=== PATIENT | male | born 1955 | race Caucasian/White ===

== ENCOUNTER 2023-08-08 02:25 | Inpatient (IN) | payer MEDICARE ==
[2023-08-08] VITALS (12 sets, daily range): BP systolic 107–138; BP diastolic 60–86; PULSE 62–98; RESP 16–19; TEMP 97.9–98.4; O2SAT 95–100
[~2023-08-08] VITALS: Ht 157.5 cm; Wt 54.5 kg
[2023-08-08] MEDS ORDERED: MORPHINE SULFATE INJ 2 MG/ml SYRG IV PRN (03:15)
[2023-08-08] MEDS ORDERED: NITROGLYCERIN 0.4 MG SL TAB SL PRN (03:15)
[2023-08-08] MEDS ORDERED: hydrALAZINE HCL 20 MG/ML VL IV PRN (03:30)
[2023-08-08] MEDS ORDERED: HEPARIN SODIUM (PORCINE) 5000 UNITS/ML 1ML VIAL SC SCH (06:00)
[2023-08-08 06:59] LABS: Eosinophils # (auto) 0.2 10 ^3/uL (0-0.8); Hemoglobin 8.4 g/dL (13.5-17.5); Lymphocytes # (auto) 1.6 10 ^3/uL (0.4-5.4); Mean Corpuscular Hemoglobin 29.5 pg (28.0-32.0); Monocytes # (auto) 0.6 10 ^3/uL (0-1.3); Neutrophils # (auto) 7.8 10 ^3/uL (1.6-8.6)
[2023-08-08 07:00] LABS: Basophils # (auto) 0.2 10 ^3/uL (0-0.2); Basophils % (auto) 1.5 % (0.0-2.0); Hematocrit 24.9 % (41.0-53.0); Lymphocytes % (auto) 15.2 % (10.0-50.0); Mean Corpuscular Hgb Conc. 33.7 g/dL (32.0-36.0); Mean Corpuscular Volume 87.4 fL (80.0-100.0); Monocytes % (auto) 6.2 % (0.0-12.0); Neutrophils % (auto) 75.1 % (37.0-80.0); Red Blood Cells 2.85 10^6/uL (4.5-5.90); Red Cell Distribution Width 16.1 % (11.8-14.3); White Blood Cell 10.4 10^3/uL (4.4-10.8)
[2023-08-08 07:14] LABS: Alanine Aminotransferase 22 U/L (7-40); Albumin 4.4 g/dL (3.2-4.8); Alkaline Phosphatase 45 U/L (46-116); Anion Gap 12 (5-15); Aspartate Aminotransferase 70 U/L (13-40); BUN/Creatinine Ratio 4.7 (10.0-20.0); Bilirubin, Total 0.2 mg/dL (0.2-1.0); Blood Urea Nitrogen 34 mg/dL (9-23); Carbon Dioxide 28 mmol/L (20-30); Chloride 98 mmol/L (98-107); Glucose 86 mg/dL (74-106); Potassium 3.9 mmol/L (3.5-5.1); Sodium 138 mmol/L (136-145); Total Protein 6.8 g/dL (5.7-8.2)
[2023-08-08] MEDS ORDERED: HEPARIN DRIP/D5W 100UNITS/ML 250 ML IV SCH (12:15)
[2023-08-08] MEDS ORDERED: ATORVASTATIN 20 MG TAB PO ONE (12:15)
[2023-08-08] MEDS ORDERED: ASPirin 325 MG TAB PO ONE (12:15)
[2023-08-08 14:07] LABS: Basophils # (auto) 0 10 ^3/uL (0-0.2); Basophils % (auto) 0.3 % (0.0-2.0); Eosinophils # (auto) 0.4 10 ^3/uL (0-0.8); Eosinophils % (auto) 3.5 % (0.0-7.0); Hematocrit 27.1 % (41.0-53.0); Hemoglobin 8.8 g/dL (13.5-17.5); Lymphocytes # (auto) 1.9 10 ^3/uL (0.4-5.4); Lymphocytes % (auto) 17.7 % (10.0-50.0); Mean Corpuscular Hemoglobin 28.5 pg (28.0-32.0); Mean Corpuscular Hgb Conc. 32.4 g/dL (32.0-36.0); Mean Corpuscular Volume 88.1 fL (80.0-100.0); Monocytes # (auto) 0.8 10 ^3/uL (0-1.3); Monocytes % (auto) 7.8 % (0.0-12.0); Neutrophils # (auto) 7.5 10 ^3/uL (1.6-8.6); Neutrophils % (auto) 70.7 % (37.0-80.0); Nucleated Red Blood Cells % 0.1 %; Red Blood Cells 3.07 10^6/uL (4.5-5.90); Red Cell Distribution Width 15.8 % (11.8-14.3); White Blood Cell 10.6 10^3/uL (4.4-10.8)
[2023-08-08 14:28] LABS: INR 1.03 (0.9-1.15); Partial Thromboplastin Time 28.5 SEC (24.5-34.5)
[2023-08-08] MEDS ORDERED: LIDOCAINE 2%HCL (LOCAL ANESTH.) INJ 20ML MDV ONE (15:01)
[2023-08-08] MEDS ORDERED: IODIXANOL 320MG/ML 100ML BTL IV ONE (15:01)
[2023-08-08] MEDS ORDERED: ANGIOMAX 250 MG VIAL IV ONE (15:30)
[2023-08-08] MEDS ORDERED: fentaNYL CITRATE 100 MCG/2 ML VL ONE (15:30)
[2023-08-08] MEDS ORDERED: SODIUM CHL 0.9% 50 ML ONE (15:31)
[2023-08-08] MEDS ORDERED: MIDAZOLAM HCL 2MG/2ML 2ml VIAL (1mg/ml) ONE (15:31)
[2023-08-08] MEDS ORDERED: TICAGRELOR 90 MG TAB ONE (16:23)
[2023-08-08] MEDS ORDERED: ASPirin 81 mg TAB ONE (16:23)
[2023-08-08] MEDS: TICAGRELOR 90 MG TAB PO SCH (22:12)
[2023-08-08] MEDS: CARVEDILOL 3.125 MG TAB PO SCH (22:13)
[2023-08-08] MEDS: ATORVASTATIN 20 MG TAB PO SCH (22:14)
[2023-08-08] MEDS: SACUBITRIL-VALSARTAN 24mg/26mg TAB PO SCH (22:14)
[2023-08-09] VITALS (8 sets, daily range): BP systolic 117–199; BP diastolic 76–92; PULSE 55–103; RESP 16–20; TEMP 97.5–98.2; O2SAT 94–100
[2023-08-09 07:01] LABS: Basophils # (auto) 0.1 10 ^3/uL (0-0.2); Eosinophils # (auto) 0.5 10 ^3/uL (0-0.8); Eosinophils % (auto) 6.1 % (0.0-7.0); Hematocrit 27.5 % (41.0-53.0); Hemoglobin 8.9 g/dL (13.5-17.5); Lymphocytes # (auto) 1.1 10 ^3/uL (0.4-5.4); Lymphocytes % (auto) 12.7 % (10.0-50.0); Mean Corpuscular Hemoglobin 28.6 pg (28.0-32.0); Mean Corpuscular Hgb Conc. 32.2 g/dL (32.0-36.0); Mean Corpuscular Volume 88.8 fL (80.0-100.0); Monocytes # (auto) 0.7 10 ^3/uL (0-1.3); Monocytes % (auto) 7.7 % (0.0-12.0); Neutrophils # (auto) 6.3 10 ^3/uL (1.6-8.6); Neutrophils % (auto) 72.5 % (37.0-80.0); Red Cell Distribution Width 16.1 % (11.8-14.3); White Blood Cell 8.7 10^3/uL (4.4-10.8)
[2023-08-09 07:10] LABS: Alanine Aminotransferase 18 U/L (7-40); Albumin 3.9 g/dL (3.2-4.8); Alkaline Phosphatase 57 U/L (46-116); Anion Gap 11 (5-15); Aspartate Aminotransferase 45 U/L (13-40); Carbon Dioxide 26 mmol/L (20-30); Chloride 97 mmol/L (98-107); Glucose 85 mg/dL (74-106); Potassium 4.2 mmol/L (3.5-5.1); Sodium 134 mmol/L (136-145)
[2023-08-09 07:11] LABS: Bilirubin, Total 0.2 mg/dL (0.2-1.0); Total Protein 6.2 g/dL (5.7-8.2)
[2023-08-09 07:18] LABS: Blood Urea Nitrogen 55 mg/dL (9-23)
[2023-08-09] MEDS: CARVEDILOL 3.125 MG TAB PO SCH ×2 (09:09→21:31)
[2023-08-09] MEDS: SACUBITRIL-VALSARTAN 24mg/26mg TAB PO SCH ×2 (09:09→21:28)
[2023-08-09] MEDS: PANTOPRAZOLE 40 MG/10 ML VIAL INJ IV SCH (09:10)
[2023-08-09] MEDS: TICAGRELOR 90 MG TAB PO SCH ×2 (09:10→21:28)
[2023-08-09] MEDS: ASPirin-EC 81 mg tab PO SCH (09:10)
[2023-08-09] MEDS ORDERED: SODIUM CHL 0.9% 1000 ML BAG XX ONE (11:45)
[2023-08-09 12:19] LABS: % Iron Saturation 24.7 % (20-55)
[2023-08-09 12:56] LABS: Hepatitis B Surface Antigen Negative (Negative)
[2023-08-09 13:16] LABS: Hepatitis A Ab IgM Negative
[2023-08-09 13:17] LABS: Hepatitis B Core IgM Negative; Hepatitis C Antibody Negative (Negative)
[2023-08-09] MEDS ORDERED: EPOETIN ALFA-EPBX 10,000 UNIT/1ML VIAL SC ONE (21:00)
[2023-08-09] MEDS: ATORVASTATIN 20 MG TAB PO SCH (21:28)
[2023-08-10 05:00] VITALS: BP 91/60; PULSE 68; RESP 18; TEMP 97.4; O2SAT 98
[2023-08-10 06:53] LABS: Basophils # (auto) 0.1 10 ^3/uL (0-0.2); Basophils % (auto) 1.4 % (0.0-2.0); Eosinophils % (auto) 12.7 % (0.0-7.0); Hematocrit 33.5 % (41.0-53.0); Hemoglobin 11.2 g/dL (13.5-17.5); Lymphocytes % (auto) 12.6 % (10.0-50.0); Mean Corpuscular Hemoglobin 29.2 pg (28.0-32.0); Mean Corpuscular Hgb Conc. 33.4 g/dL (32.0-36.0); Mean Corpuscular Volume 87.4 fL (80.0-100.0); Monocytes # (auto) 0.6 10 ^3/uL (0-1.3); Monocytes % (auto) 7.7 % (0.0-12.0); Neutrophils # (auto) 5.1 10 ^3/uL (1.6-8.6); Neutrophils % (auto) 65.6 % (37.0-80.0); Nucleated Red Blood Cells % 0.2 %; Red Blood Cells 3.83 10^6/uL (4.5-5.90); Red Cell Distribution Width 16.1 % (11.8-14.3); White Blood Cell 7.8 10^3/uL (4.4-10.8)
[2023-08-10 07:09] LABS: Alanine Aminotransferase 22 U/L (7-40); Albumin 4.8 g/dL (3.2-4.8); Alkaline Phosphatase 70 U/L (46-116); Anion Gap 12 (5-15); Aspartate Aminotransferase 45 U/L (13-40); BUN/Creatinine Ratio 4.8 (10.0-20.0); Blood Urea Nitrogen 16 mg/dL (9-23); Calcium 8.9 mg/dL (8.7-10.4); Carbon Dioxide 30 mmol/L (20-30); Chloride 98 mmol/L (98-107); Glucose 86 mg/dL (74-106); Potassium 3.5 mmol/L (3.5-5.1); Sodium 140 mmol/L (136-145)
[2023-08-10 07:10] LABS: Bilirubin, Total 0.4 mg/dL (0.2-1.0); Total Protein 7.8 g/dL (5.7-8.2)
[2023-08-10 08:00] VITALS: BP 95/76; PULSE 95; RESP 18; TEMP 98.1; O2SAT 100
[2023-08-10 09:00] VITALS: BP 95/76; PULSE 95; RESP 18; TEMP 98.1; O2SAT 100
[2023-08-10] MEDS: PANTOPRAZOLE 40 MG/10 ML VIAL INJ IV SCH (10:33)
[2023-08-10] MEDS: SACUBITRIL-VALSARTAN 24mg/26mg TAB PO SCH (10:33)
[2023-08-10] MEDS: ASPirin-EC 81 mg tab PO SCH (10:33)
[2023-08-10] MEDS: TICAGRELOR 90 MG TAB PO SCH (10:33)
[2023-08-10] MEDS: CARVEDILOL 3.125 MG TAB PO SCH (10:36)
[2023-08-10] MEDS ORDERED: ATOR20TA50 PO (11:10)
[2023-08-10] MEDS ORDERED: NITR0.4S29 SL (11:10)
[2023-08-10] MEDS ORDERED: SACU1TAB PO (11:10)
[2023-08-10] MEDS ORDERED: TICA90TA PO (11:10)
[2023-08-10] MEDS ORDERED: CAR3125T PO (11:10)
[2023-08-10] MEDS ORDERED: ASPI-543 PO (11:10)
[2023-08-10 12:48] VITALS: BP 131/78; PULSE 95; RESP 18; TEMP 98.1; O2SAT 100
[2023-08-10 13:00] VITALS: BP 124/74; PULSE 83; RESP 20; TEMP 97.9; O2SAT 100
[2023-08-10] MEDS ORDERED: EPOETIN ALFA-EPBX 10,000 UNIT/1ML VIAL SC ONE (21:00)
== END 2023-08-10 18:20 | disposition home health service (06) | DRG 321 ==
LOC: TELE-WESTW 02:27
PROVIDERS: ADMIT Internal Medicine; ATTEND Internal Medicine
PROC: 027034Z Dilation of Coronary Artery, One Artery with Drug-eluting Intraluminal Device, Percutaneous Approach (ICD-10-PCS; principal; 2023-08-08)
PROC: B211YZZ Fluoroscopy of Multiple Coronary Arteries using Other Contrast (ICD-10-PCS; 2023-08-08)
PROC: B215YZZ Fluoroscopy of Left Heart using Other Contrast (ICD-10-PCS; 2023-08-08)
PROC: 4A023N7 Measurement of Cardiac Sampling and Pressure, Left Heart, Percutaneous Approach (ICD-10-PCS; 2023-08-08)
PROC: 5A1D70Z Performance of Urinary Filtration, Intermittent, Less than 6 Hours Per Day (ICD-10-PCS; 2023-08-09)
PROC: 5A1D70Z Performance of Urinary Filtration, Intermittent, Less than 6 Hours Per Day (ICD-10-PCS; 2023-08-10)
DX: I21.4 Non-ST elevation (NSTEMI) myocardial infarction (principal); N18.6 End stage renal disease; I12.0 Hypertensive chronic kidney disease with stage 5 chronic kidney disease or end stage renal disease; I25.10 Atherosclerotic heart disease of native coronary artery without angina pectoris; E78.5 Hyperlipidemia, unspecified; I25.5 Ischemic cardiomyopathy; D63.1 Anemia in chronic kidney disease; I36.1 Nonrheumatic tricuspid (valve) insufficiency; E87.70 Fluid overload, unspecified; Z99.2 Dependence on renal dialysis; Z79.899 Other long term (current) drug therapy; Z80.0 Family history of malignant neoplasm of digestive organs; Z83.3 Family history of diabetes mellitus; Z82.0 Family history of epilepsy and other diseases of the nervous system; Z86.73 Personal history of transient ischemic attack (TIA), and cerebral infarction without residual deficits; I25.2 Old myocardial infarction
CPT/HCPCS: 36415; 70450; 71045; 80053; 80074; 83540; 83550; 84484; 85025; 85610; 85730; 87081; 90935; 93005; 93306; 99152; C1874; C1887; C1894; C9113; G0378; J2250; Q9967

== ENCOUNTER 2023-08-31 01:07 | Inpatient (IN) | payer MEDICARE ==
[~2023-08-31] VITALS: Ht 172.7 cm; Wt 60.9 kg
[2023-08-31] VITALS (14 sets, daily range): BP systolic 136–179; BP diastolic 69–82; PULSE 60–90; RESP 16–25; TEMP 36.8; O2SAT 97–100
[~2023-08-31 01:07] MED LIST: ASPI-543 PO; ATOR20TA50 PO; CAR3125T PO; NITR0.4S29 SL; SACU1TAB PO; TICA90TA PO
[2023-08-31] MEDS ORDERED: PANTOPRAZOLE 40mg/50ML NS AE 50 ML IV ONE (01:30)
[2023-08-31 02:04] LABS: Basophils # (auto) 0.1 10 ^3/uL (0-0.2); Basophils % (auto) 0.7 % (0.0-2.0); Eosinophils # (auto) 0.5 10 ^3/uL (0-0.8); Monocytes # (auto) 0.4 10 ^3/uL (0-1.3)
[2023-08-31 02:06] LABS: Eosinophils % (auto) 6.7 % (0.0-7.0); Hematocrit 15.9 % (41.0-53.0); Lymphocytes # (auto) 1.8 10 ^3/uL (0.4-5.4); Lymphocytes % (auto) 23.7 % (10.0-50.0); Mean Corpuscular Hemoglobin 29.4 pg (28.0-32.0); Mean Corpuscular Hgb Conc. 32.6 g/dL (32.0-36.0); Mean Corpuscular Volume 90.2 fL (80.0-100.0); Monocytes % (auto) 5.8 % (0.0-12.0); Neutrophils # (auto) 4.8 10 ^3/uL (1.6-8.6); Neutrophils % (auto) 63.1 % (37.0-80.0); Red Blood Cells 1.76 10^6/uL (4.5-5.90); Red Cell Distribution Width 17.7 % (11.8-14.3); White Blood Cell 7.6 10^3/uL (4.4-10.8)
[2023-08-31 02:09] LABS: Hemoglobin 5.2 g/dL (13.5-17.5)
[2023-08-31 02:16] LABS: Alanine Aminotransferase 13 U/L (7-40); Albumin 3.7 g/dL (3.2-4.8); Alkaline Phosphatase 70 U/L (46-116); Anion Gap 16 (5-15); Aspartate Aminotransferase 17 U/L (13-40); BUN/Creatinine Ratio 16.3 (10.0-20.0); Carbon Dioxide 17 mmol/L (20-30); Chloride 104 mmol/L (98-107); Glucose 92 mg/dL (74-106); Potassium 4.9 mmol/L (3.5-5.1); Sodium 137 mmol/L (136-145)
[2023-08-31 02:17] LABS: Bilirubin, Total 0.2 mg/dL (0.2-1.0); Total Protein 5.9 g/dL (5.7-8.2)
[2023-08-31 02:43] LABS: Blood Urea Nitrogen 148 mg/dL (9-23)
[2023-08-31] MEDS ORDERED: CALCIUM CHL 100MG/ML 1,000 MG in D5W 5% 100 ML IV ONE (03:00)
[2023-08-31] MEDS ORDERED: CALCIUM GLUC 1,000mg/50ml-NS 0 ML IV ONE (03:23)
[2023-08-31] MEDS ORDERED: CALCIUM CHLOR(10%) 100MG/ML 10ML SYRINGE IV ONE (03:37)
[2023-08-31] MEDS ORDERED: ONDANSETRON HCL 4 MG/2 ML VIAL IV PRN (03:45)
[2023-08-31] MEDS ORDERED: HYDROcodone-ACET 5/325MG TAB PO PRN ×2 (03:45→04:00)
[2023-08-31] MEDS ORDERED: MORPHINE SULFATE INJ 2 MG/ml SYRG IV PRN ×2 (03:45→04:00)
[2023-08-31] MEDS ORDERED: ACETAMINOPHEN 325 MG TAB PO PRN (03:45)
[2023-08-31] MEDS ORDERED: NITROGLYCERIN 0.4 MG SL TAB SL PRN ×2 (03:45→04:00)
[2023-08-31] MEDS ORDERED: DOCUSATE SOD 100 MG CAP PO PRN (03:45)
[2023-08-31 05:57] LABS: Eosinophils # (auto) 0.9 10 ^3/uL (0-0.8); Lymphocytes # (auto) 2.1 10 ^3/uL (0.4-5.4); Monocytes # (auto) 0.5 10 ^3/uL (0-1.3); Red Blood Cells 1.61 10^6/uL (4.5-5.90); White Blood Cell 7.8 10^3/uL (4.4-10.8)
[2023-08-31 06:00] LABS: Basophils # (auto) 0.1 10 ^3/uL (0-0.2); Basophils % (auto) 1.3 % (0.0-2.0); Hematocrit 14.6 % (41.0-53.0); Lymphocytes % (auto) 26.8 % (10.0-50.0); Mean Corpuscular Hemoglobin 29.9 pg (28.0-32.0); Mean Corpuscular Volume 90.4 fL (80.0-100.0); Monocytes % (auto) 5.7 % (0.0-12.0); Neutrophils # (auto) 4.3 10 ^3/uL (1.6-8.6); Neutrophils % (auto) 55.2 % (37.0-80.0); Red Cell Distribution Width 17.2 % (11.8-14.3)
[2023-08-31 06:05] LABS: Hemoglobin 4.8 g/dL (13.5-17.5)
[2023-08-31 06:13] LABS: Alanine Aminotransferase 14 U/L (7-40); Albumin 3.6 g/dL (3.2-4.8); Alkaline Phosphatase 61 U/L (46-116); Anion Gap 16 (5-15); Calcium 7.7 mg/dL (8.5-10.1); Carbon Dioxide 17 mmol/L (20-30); Chloride 104 mmol/L (98-107); Glucose 99 mg/dL (74-106); Potassium 4.3 mmol/L (3.5-5.1); Sodium 137 mmol/L (136-145)
[2023-08-31 06:14] LABS: Aspartate Aminotransferase 20 U/L (13-40); Bilirubin, Total 0.2 mg/dL (0.2-1.0); Total Protein 5.6 g/dL (5.7-8.2)
[2023-08-31 06:21] LABS: BUN/Creatinine Ratio 15.7 (10.0-20.0)
[2023-08-31 06:26] LABS: Blood Urea Nitrogen 150 mg/dL (9-23)
[2023-08-31] MEDS ORDERED: SEVELAMER 800 MG TAB PO SCH (08:00)
[2023-08-31] MEDS: SEVELAMER 800 MG TAB PO SCH ×3 (08:49→18:33)
[2023-08-31 10:35] LABS: Hematocrit 20.1 % (41.0-53.0)
[2023-08-31] MEDS ORDERED: SODIUM CHL 0.9% 1000 ML BAG XX ONE (11:00)
[2023-08-31 11:22] LABS: Hemoglobin 6.6 g/dL (13.5-17.5)
[2023-08-31] MEDS: FAMOTIDINE (10MG/ML) 2ML VL IV SCH ×2 (11:30→21:15)
[2023-08-31] MEDS: B-COMPLEX W/ C & FOLIC ACID(NEPHROVITE TAB) PO SCH (11:30)
[2023-08-31] MEDS ORDERED: ASPI81TA28 PO (13:53)
[2023-08-31] MEDS ORDERED: CAR3125T PO (14:12)
[2023-08-31] MEDS ORDERED: SACU1TAB PO (14:13)
[2023-08-31] MEDS ORDERED: ATO40T PO (14:14)
[2023-08-31] MEDS ORDERED: SUCR5CHW PO (14:15)
[2023-08-31] MEDS ORDERED: ISOS10TA2 PO (14:15)
[2023-08-31] MEDS ORDERED: CLOP75TA28 PO (14:16)
[2023-08-31] MEDS: ONDANSETRON HCL 4 MG/2 ML VIAL IV PRN ×2 (15:42→21:14)
[2023-08-31 17:29] LABS: Hemoglobin 8.4 g/dL (13.5-17.5)
[2023-08-31 17:31] LABS: Hematocrit 24.6 % (41.0-53.0)
[2023-08-31] MEDS ORDERED: EPOETIN ALFA-EPBX 10,000 UNIT/1ML VIAL SC ONE (21:00)
[2023-09-01 06:33] LABS: Basophils # (auto) 0.1 10 ^3/uL (0-0.2); Lymphocytes # (auto) 1.7 10 ^3/uL (0.4-5.4); Mean Corpuscular Hemoglobin 29.5 pg (28.0-32.0); Mean Corpuscular Hgb Conc. 33.2 g/dL (32.0-36.0); Monocytes # (auto) 0.6 10 ^3/uL (0-1.3); Neutrophils # (auto) 4.1 10 ^3/uL (1.6-8.6); White Blood Cell 7.5 10^3/uL (4.4-10.8)
[2023-09-01 06:35] LABS: Basophils % (auto) 1.7 % (0.0-2.0); Eosinophils % (auto) 13.1 % (0.0-7.0); Lymphocytes % (auto) 22.4 % (10.0-50.0); Monocytes % (auto) 8.2 % (0.0-12.0); Neutrophils % (auto) 54.6 % (37.0-80.0); Red Cell Distribution Width 15.7 % (11.8-14.3)
[2023-09-01 06:44] LABS: Alanine Aminotransferase 17 U/L (7-40); Albumin 3.6 g/dL (3.2-4.8); Alkaline Phosphatase 50 U/L (46-116); Anion Gap 10 (5-15); Aspartate Aminotransferase 29 U/L (13-40); BUN/Creatinine Ratio 9.5 (10.0-20.0); Calcium 7.1 mg/dL (8.7-10.4); Carbon Dioxide 26 mmol/L (20-30); Chloride 101 mmol/L (98-107); Glucose 80 mg/dL (74-106); Potassium 3.9 mmol/L (3.5-5.1); Sodium 137 mmol/L (136-145)
[2023-09-01 06:45] LABS: Bilirubin, Total 0.3 mg/dL (0.2-1.0); Total Protein 5.7 g/dL (5.7-8.2)
[2023-09-01 06:46] LABS: Blood Urea Nitrogen 66 mg/dL (9-23)
[2023-09-01 08:00] VITALS: PULSE 73
[2023-09-01] MEDS: SEVELAMER 800 MG TAB PO SCH ×4 (08:00→17:26)
[2023-09-01] MEDS: FAMOTIDINE (10MG/ML) 2ML VL IV SCH ×2 (08:49→21:45)
[2023-09-01 09:00] VITALS: BP 157/70; PULSE 75; RESP 17; TEMP 97.9; O2SAT 93
[2023-09-01] MEDS: B-COMPLEX W/ C & FOLIC ACID(NEPHROVITE TAB) PO SCH (09:00)
[2023-09-01 11:22] LABS: Urine Bacteria FEW /hpf (None Seen); Urine Blood TRACE /uL (Negative); Urine Clarity Clear (Clear); Urine Color Yellow (Yellow); Urine Protein, UAD 1+ (Negative); Urine Specific Gravity 1.008 (1.001-1.035); Urine Urobilinogen Normal (Negative); Urine WBC 22 /hpf (0 - 3); Urine pH 7.5 (5.0-8.0)
[2023-09-01 13:00] VITALS: BP 160/80; PULSE 78; RESP 18; TEMP 99; O2SAT 99
[2023-09-01 17:00] VITALS: BP 136/79; PULSE 76; RESP 18; TEMP 98.3; O2SAT 96
[2023-09-01 20:00] VITALS: BP 143/65; PULSE 79; PULSE 81; RESP 20; TEMP 98; O2SAT 98
[2023-09-01 22:00] VITALS: BP 143/65; PULSE 81; RESP 20; TEMP 98; O2SAT 98
[2023-09-02] VITALS (8 sets, daily range): BP systolic 158–171; BP diastolic 69–85; PULSE 65–83; RESP 16–20; TEMP 97.5–97.9; O2SAT 95–99
[2023-09-02] MEDS: hydrALAZINE HCL 20 MG/ML VL IV PRN ×3 (05:37→21:24)
[2023-09-02] MEDS ORDERED: SODIUM CHLORIDE LOCK 10 ML ONE (07:59)
[2023-09-02] MEDS ORDERED: MIDAZOLAM HCL 5 MG/ML-1ML VIAL ONE (07:59)
[2023-09-02] MEDS ORDERED: LIDOCAINE VISCOUS 2% 15ML UD ONE (07:59)
[2023-09-02] MEDS ORDERED: fentaNYL CITRATE 100 MCG/2 ML VL ONE (08:00)
[2023-09-02] MEDS ORDERED: diphenhdrAMINE HCL 50 MG/1 ML VL ONE (08:00)
[2023-09-02] MEDS: SEVELAMER 800 MG TAB PO SCH ×3 (08:00→18:52)
[2023-09-02] MEDS: B-COMPLEX W/ C & FOLIC ACID(NEPHROVITE TAB) PO SCH (10:00)
[2023-09-02] MEDS: FAMOTIDINE (10MG/ML) 2ML VL IV SCH ×2 (10:00→21:24)
[2023-09-03] MEDS: hydrALAZINE HCL 20 MG/ML VL IV PRN (04:32)
[2023-09-03 05:00] VITALS: BP 162/68; PULSE 83; RESP 19; TEMP 98.2; O2SAT 99
[2023-09-03] MEDS ORDERED: SODIUM CHL 0.9% 1000 ML BAG XX ONE (07:00)
[2023-09-03 08:00] VITALS: PULSE 86
[2023-09-03] MEDS: SEVELAMER 800 MG TAB PO SCH ×2 (08:00→12:00)
[2023-09-03 08:15] VITALS: PULSE 92; RESP 16
[2023-09-03 09:00] VITALS: BP 134/65; PULSE 83; RESP 16; TEMP 98.2; O2SAT 94
[2023-09-03] MEDS: B-COMPLEX W/ C & FOLIC ACID(NEPHROVITE TAB) PO SCH (10:00)
[2023-09-03] MEDS ORDERED: SEVE800T PO (10:45)
[2023-09-03] MEDS ORDERED: OME20T PO (10:47)
[2023-09-03] MEDS ORDERED: ISOS20TA5 PO (10:50)
[2023-09-03] MEDS: FAMOTIDINE (10MG/ML) 2ML VL IV SCH (13:16)
[2023-09-03] MEDS ORDERED: EPOETIN ALFA-EPBX 10,000 UNIT/1ML VIAL SC ONE (21:00)
== END 2023-09-03 15:00 | disposition home or self-care (01) | DRG 377 ==
LOC: ER 01:07 → EDBD 01:07 → TELE 03:43 → ER 03:49 → TELE-CENTR 03:49
PROVIDERS: ADMIT Nurse Practitioner Family; ATTEND Internal Medicine
PROC: 30233N1 Transfusion of Nonautologous Red Blood Cells into Peripheral Vein, Percutaneous Approach (ICD-10-PCS; principal; 2023-08-31)
PROC: 5A1D70Z Performance of Urinary Filtration, Intermittent, Less than 6 Hours Per Day (ICD-10-PCS; 2023-08-31)
PROC: 0DB68ZX Excision of Stomach, Via Natural or Artificial Opening Endoscopic, Diagnostic (ICD-10-PCS; 2023-09-02)
PROC: 5A1D70Z Performance of Urinary Filtration, Intermittent, Less than 6 Hours Per Day (ICD-10-PCS; 2023-09-03)
DX: K29.81 Duodenitis with bleeding (principal); N18.6 End stage renal disease; D62 Acute posthemorrhagic anemia; I13.2 Hypertensive heart and chronic kidney disease with heart failure and with stage 5 chronic kidney disease, or end stage renal disease; E83.51 Hypocalcemia; I50.9 Heart failure, unspecified; D63.8 Anemia in other chronic diseases classified elsewhere; I25.5 Ischemic cardiomyopathy; I25.10 Atherosclerotic heart disease of native coronary artery without angina pectoris; K31.7 Polyp of stomach and duodenum; J44.9 Chronic obstructive pulmonary disease, unspecified; Z99.2 Dependence on renal dialysis; Z95.5 Presence of coronary angioplasty implant and graft; Z79.82 Long term (current) use of aspirin; Z79.899 Other long term (current) drug therapy; Z82.0 Family history of epilepsy and other diseases of the nervous system; Z80.0 Family history of malignant neoplasm of digestive organs; Z83.3 Family history of diabetes mellitus; Z86.73 Personal history of transient ischemic attack (TIA), and cerebral infarction without residual deficits; K26.4 Chronic or unspecified duodenal ulcer with hemorrhage
CPT/HCPCS: 36415; 36430; 43239; 71045; 80053; 81001; 83880; 85014; 85018; 85025; 86850; 86900; 86901; 86920; 87081; 90935; 93005; 99291; G0378; J2250; J2405; J3490; J7060

== ENCOUNTER 2024-03-31 15:56 | Inpatient (IN) | payer MEDICARE ==
[~2024-03-31] VITALS: Ht 157.5 cm; Wt 61.3 kg
[~2024-03-31 15:56] MED LIST changes: +AMLO1TAB22 PO; -ASPI-543 PO; +ASPI81TA28 PO; +ATOR-507 PO; -ATOR20TA50 PO; +B-CO-5 PO; +CLOP75TA28 PO; +ISOS20TA5 PO; -NITR0.4S29 SL; +OME20T PO; +SEVE800T7 PO; +SUCR5CHW PO; -TICA90TA PO
[2024-03-31 16:34] VITALS: PULSE 85; RESP 22; O2SAT 98
[2024-03-31 17:13] LABS: Basophils # (auto) 0.2 10 ^3/uL (0-0.2); Basophils % (auto) 3.8 % (0.0-2.0); Eosinophils # (auto) 0.6 10 ^3/uL (0-0.8); Hematocrit 34.3 % (41.0-53.0); Hemoglobin 11.5 g/dL (13.5-17.5); Lymphocytes # (auto) 0.8 10 ^3/uL (0.4-5.4); Lymphocytes % (auto) 14.5 % (10.0-50.0); Mean Corpuscular Hemoglobin 28.5 pg (28.0-32.0); Mean Corpuscular Hgb Conc. 33.4 g/dL (32.0-36.0); Mean Corpuscular Volume 85.3 fL (80.0-100.0); Monocytes # (auto) 0.3 10 ^3/uL (0-1.3); Monocytes % (auto) 6.4 % (0.0-12.0); Neutrophils # (auto) 3.3 10 ^3/uL (1.6-8.6); Neutrophils % (auto) 63.3 % (37.0-80.0); Nucleated Red Blood Cells % 0.1 %; Platelet Count (auto) 203 10^3/uL (140-450); Red Blood Cells 4.02 10^6/uL (4.5-5.90); Red Cell Distribution Width 16.3 % (11.8-14.3); White Blood Cell 5.2 10^3/uL (4.4-10.8)
[2024-03-31 17:24] LABS: Alanine Aminotransferase 12 U/L (7-40); Alkaline Phosphatase 71 U/L (46-116); Anion Gap 10 (5-15); Aspartate Aminotransferase 25 U/L (13-40); Blood Urea Nitrogen 26 mg/dL (9-23); Calcium 8.7 mg/dL (8.7-10.4); Carbon Dioxide 25 mmol/L (20-30); Chloride 102 mmol/L (98-107); Glucose 80 mg/dL (74-106); Potassium 3.9 mmol/L (3.5-5.1); Sodium 137 mmol/L (136-145)
[2024-03-31 17:25] LABS: Albumin 4.4 g/dL (3.2-4.8); Bilirubin, Total 0.4 mg/dL (0.2-1.0); Total Protein 7.6 g/dL (5.7-8.2)
[2024-03-31 17:31] LABS: INR 1.03 (0.9-1.15); Partial Thromboplastin Time 33.7 SEC (24.5-34.5); Prothrombin Time 10.9 sec (9.3-11.8)
[2024-03-31] MEDS ORDERED: ONDANSETRON HCL 4 MG/2 ML VIAL IV PRN (22:45)
[2024-03-31] MEDS: FUROSEMIDE 40 MG/4 ML VIAL IV ONE (23:06)
[2024-04-01] VITALS (8 sets, daily range): BP systolic 134–157; BP diastolic 87–96; PULSE 69–87; RESP 17–97; TEMP 97.6–98.2; O2SAT 97–100
[2024-04-01] MEDS: FUROSEMIDE 40 MG/4 ML VIAL IV ONE (04:41)
[2024-04-01] MEDS: AZITHROMYCIN 500MG/ 250ML 250 ML IV SCH (05:15)
[2024-04-01] MEDS ORDERED: ALBUTEROL SULF 2.5 MG/0.5ML(0.5%) NEB SOLN NEB PRN (05:15)
[2024-04-01] MEDS: ISOSORBIDE DINITRATE 10 MG TAB PO SCH (05:52)
[2024-04-01 06:17] LABS: Basophils # (auto) 0.2 10 ^3/uL (0-0.2); Basophils % (auto) 3.7 % (0.0-2.0); Eosinophils # (auto) 0.5 10 ^3/uL (0-0.8); Eosinophils % (auto) 8.5 % (0.0-7.0); Hematocrit 34.4 % (41.0-53.0); Hemoglobin 11.3 g/dL (13.5-17.5); Lymphocytes # (auto) 0.6 10 ^3/uL (0.4-5.4); Lymphocytes % (auto) 10.6 % (10.0-50.0); Mean Corpuscular Hemoglobin 28.2 pg (28.0-32.0); Mean Corpuscular Hgb Conc. 32.9 g/dL (32.0-36.0); Mean Corpuscular Volume 85.8 fL (80.0-100.0); Monocytes # (auto) 0.3 10 ^3/uL (0-1.3); Monocytes % (auto) 5.1 % (0.0-12.0); Neutrophils # (auto) 4.4 10 ^3/uL (1.6-8.6); Neutrophils % (auto) 72.1 % (37.0-80.0); Platelet Count (auto) 267 10^3/uL (140-450); Red Blood Cells 4.01 10^6/uL (4.5-5.90); Red Cell Distribution Width 15.8 % (11.8-14.3); White Blood Cell 6.1 10^3/uL (4.4-10.8)
[2024-04-01 06:29] LABS: Chloride 101 mmol/L (98-107); Potassium 4.4 mmol/L (3.5-5.1); Sodium 137 mmol/L (136-145)
[2024-04-01 06:30] LABS: Anion Gap 10 (5-15); Calcium 8.1 mg/dL (8.7-10.4); Carbon Dioxide 26 mmol/L (20-30)
[2024-04-01 06:35] LABS: BUN/Creatinine Ratio 4.4 (10.0-20.0); Blood Urea Nitrogen 34 mg/dL (9-23); Glucose 70 mg/dL (74-106)
[2024-04-01] MEDS: SEVELAMER 800 MG TAB PO SCH (08:52)
[2024-04-01] MEDS: CLOPIDOGREL BISULFATE 75 MG TAB PO SCH (08:55)
[2024-04-01] MEDS: SACUBITRIL-VALSARTAN 24mg/26mg TAB PO SCH (08:55)
[2024-04-01] MEDS: CARVEDILOL 3.125 MG TAB PO SCH (08:56)
[2024-04-01] MEDS: ASPirin 81 mg TAB PO SCH (08:56)
[2024-04-01] MEDS: ATORVASTATIN 20 MG TAB PO SCH (21:36)
[2024-04-02] VITALS (10 sets, daily range): BP systolic 126–164; BP diastolic 76–88; PULSE 66–76; RESP 17–20; TEMP 97.5–98; O2SAT 96–100
[2024-04-02 07:29] LABS: Chloride 102 mmol/L (98-107); Sodium 139 mmol/L (136-145)
[2024-04-02 07:30] LABS: Anion Gap 7 (5-15); Carbon Dioxide 30 mmol/L (20-30)
[2024-04-02 07:36] LABS: BUN/Creatinine Ratio 4.9 (10.0-20.0); Blood Urea Nitrogen 31 mg/dL (9-23); Glucose 70 mg/dL (74-106)
[2024-04-02 07:38] LABS: Phosphorus 4.5 mg/dL (2.4-5.1)
[2024-04-02] MEDS: SODIUM CHL 0.9% 1000 ML BAG XX ONE (09:06)
[2024-04-03] VITALS (8 sets, daily range): BP systolic 124–149; BP diastolic 72–89; PULSE 60–86; RESP 16–18; TEMP 97.5–98.4; O2SAT 92–100
[2024-04-03 09:03] LABS: Hepatitis B Surface Antigen Negative (Negative)
[2024-04-03] MEDS: cefTRIAXone 1GM/50ML D5W 50 ML IV SCH (09:16)
[2024-04-03 09:24] LABS: Hepatitis A Ab IgM Negative
[2024-04-03 09:25] LABS: Hepatitis B Core IgM Negative; Hepatitis C Antibody Negative (Negative)
[2024-04-03] MEDS ORDERED: ALBU108A5 INH (10:07)
[2024-04-03] MEDS: ACETAMINOPHEN 325 MG TAB PO PRN (16:41)
[2024-04-04 01:00] VITALS: BP 128/78; PULSE 60; RESP 17; TEMP 98.6; O2SAT 100
[2024-04-04 05:00] VITALS: BP 128/78; PULSE 65; RESP 17; TEMP 98.3; O2SAT 100
[2024-04-04] MEDS ORDERED: SODIUM CHL 0.9% 1000 ML BAG XX ONE (07:00)
[2024-04-04 07:20] LABS: Chloride 97 mmol/L (98-107); Potassium 4.4 mmol/L (3.5-5.1)
[2024-04-04 07:21] LABS: Anion Gap 8 (5-15); Calcium 7.5 mg/dL (8.7-10.4); Carbon Dioxide 28 mmol/L (20-30)
[2024-04-04 07:26] LABS: BUN/Creatinine Ratio 5.7 (10.0-20.0); Glucose 79 mg/dL (74-106)
[2024-04-04 07:38] LABS: Blood Urea Nitrogen 46 mg/dL (9-23); Sodium 133 mmol/L (136-145)
[2024-04-04 08:00] VITALS: PULSE 87; RESP 16; O2SAT 98
[2024-04-04 09:00] VITALS: BP 133/79; PULSE 62; RESP 16; TEMP 97.5; O2SAT 100
[2024-04-04 10:00] VITALS: O2SAT 98
[2024-04-04] MEDS ORDERED: AZIT500T66 PO (10:25)
[2024-04-04 13:00] VITALS: BP 157/81; PULSE 55; RESP 18; TEMP 97.6
== END 2024-04-04 17:50 | disposition home or self-care (01) | DRG 177 ==
LOC: ER 15:56 → OVERFLOW 22:46 → EAST 04-01 03:21
PROVIDERS: ADMIT Nurse Practitioner; ATTEND Family Medicine
PROC: 5A1D70Z Performance of Urinary Filtration, Intermittent, Less than 6 Hours Per Day (ICD-10-PCS; 2024-03-28)
PROC: 5A1D70Z Performance of Urinary Filtration, Intermittent, Less than 6 Hours Per Day (ICD-10-PCS; principal; 2024-04-01)
PROC: 5A1D70Z Performance of Urinary Filtration, Intermittent, Less than 6 Hours Per Day (ICD-10-PCS; 2024-04-02)
DX: J15.69 Pneumonia due to other Gram-negative bacteria (principal); I50.43 Acute on chronic combined systolic (congestive) and diastolic (congestive) heart failure; N18.6 End stage renal disease; I13.2 Hypertensive heart and chronic kidney disease with heart failure and with stage 5 chronic kidney disease, or end stage renal disease; J15.9 Unspecified bacterial pneumonia; I16.0 Hypertensive urgency; I25.10 Atherosclerotic heart disease of native coronary artery without angina pectoris; E78.00 Pure hypercholesterolemia, unspecified; I27.20 Pulmonary hypertension, unspecified; I25.5 Ischemic cardiomyopathy; Z99.2 Dependence on renal dialysis; Z86.73 Personal history of transient ischemic attack (TIA), and cerebral infarction without residual deficits; Z79.899 Other long term (current) drug therapy; I25.2 Old myocardial infarction; Z83.3 Family history of diabetes mellitus; Z82.0 Family history of epilepsy and other diseases of the nervous system; Z80.0 Family history of malignant neoplasm of digestive organs; Z91.199 Patient's noncompliance with other medical treatment and regimen due to unspecified reason; Z95.5 Presence of coronary angioplasty implant and graft
CPT/HCPCS: 36415; 71045; 78582; 80048; 80053; 80074; 83880; 84100; 84484; 85025; 85379; 85610; 85730; 87081; 90935; 93005; 93306; 93970; 99291; G0378